=== PATIENT | male | born 1995 | race Hispanic/Latino ===

== ENCOUNTER 2024-07-16 17:47 | Emergency (ER) | payer OTHER ==
[~2024-07-16] VITALS: Ht 182.9 cm; Wt 108.9 kg
[2024-07-16 19:12] LABS: INFLUENZA A AG NEGATIVE (NEGATIVE); INFLUENZA B AG NEGATIVE (NEGATIVE)
[2024-07-16 19:13] LABS: CORONAVIRUS COVID-19 AG POSITIVE (NEGATIVE)
[2024-07-16] MEDS: ACETAMINOPHEN 325 MG TAB PO ONE (19:25)
[2024-07-16 19:50] VITALS: PULSE 95; RESP 20; TEMP 99.4; O2SAT 99
== END 2024-07-16 19:51 | disposition home or self-care (01) ==
LOC: ER 18:28
DX: R50.9 Fever, unspecified (principal); U07.1 COVID-19; R05.9 Cough, unspecified
CPT/HCPCS: 71046; 99283